=== PATIENT | female | born 1950 | race Native Hawaiian/Other Pacific Islander ===

== ENCOUNTER 2018-03-14 07:54 | Outpatient (CLI) | payer OTHER | END 2018-03-14 07:55 | disposition home or self-care (01) | LOC: C.MAMMO 07:55 | DX: Z12.31 Encounter for screening mammogram for malignant neoplasm of breast (principal); R92.2 Inconclusive mammogram ==

== ENCOUNTER 2018-05-11 12:19 | Outpatient (CLI) | payer OTHER | END 2018-05-11 12:20 | disposition home or self-care (01) | LOC: C.RADIC 12:19 ==

== ENCOUNTER 2018-05-25 08:15 | Outpatient (CLI) | payer OTHER | END 2018-05-25 08:16 | disposition home or self-care (01) | LOC: C.LAB 08:15 ==

== ENCOUNTER 2018-06-07 08:11 | Outpatient (CLI) | payer OTHER | END 2018-06-07 08:12 | disposition home or self-care (01) | LOC: C.USIC 08:12 | DX: R94.5 Abnormal results of liver function studies (principal); K76.0 Fatty (change of) liver, not elsewhere classified ==